=== PATIENT | female | born 1955 | race Caucasian/White ===

== ENCOUNTER 2018-03-12 15:48 | Inpatient (IN) | payer MEDICARE, BC ==
[2018-03-12] MEDS ORDERED: Ondansetron 4 MG/2 ML SDV IV PRN (16:35)
[2018-03-12] MEDS: Dextrose 5%-Lactated Ringers 1,000 ML IV SCH (16:45)
[2018-03-12] MEDS: Pantoprazole 40 MG Vial IV SCH (17:32)
[2018-03-12] MEDS ORDERED: Sodium Chloride 0.9% 10 ML Syringe FLUSH PRN (19:33)
[2018-03-12] MEDS: LORazepam 2 MG/ML SDV IV PRN (20:21)
[2018-03-13] MEDS: LORazepam 2 MG/ML SDV IV PRN ×2 (01:25→09:45)
[2018-03-13] MEDS: Dextrose 5%-Lactated Ringers 1,000 ML IV SCH ×2 (02:31→23:08)
[2018-03-13] MEDS ORDERED: Naloxone 0.4 MG/ML SDV IV PRN (07:16)
[2018-03-13] MEDS ORDERED: HYDROmorphone/Normal Saline 15 MG/30 ML PCA IV PRN (07:16)
[2018-03-13] MEDS ORDERED: Dexamethasone 4 MG/ML SDV ONE (07:59)
[2018-03-13] MEDS ORDERED: Succinylcholine 200 MG/10 ML MDV ONE (07:59)
[2018-03-13] MEDS ORDERED: Neostigmine Methylsulfate 1 MG/ML 5 ML Syringe ONE (07:59)
[2018-03-13] MEDS ORDERED: fentaNYL 250 MCG/5 ML SDV ONE (07:59)
[2018-03-13] MEDS ORDERED: Propofol 200 MG/20 ML SDV ONE (07:59)
[2018-03-13] MEDS ORDERED: Rocuronium 50 MG/5 ML Vial ONE (07:59)
[2018-03-13] MEDS ORDERED: Ondansetron 4 MG/2 ML SDV ONE (07:59)
[2018-03-13] MEDS ORDERED: Glycopyrrolate 0.2 MG/ML 5 ML MDV ONE (07:59)
[2018-03-13] MEDS ORDERED: Celecoxib 200 MG Cap PO ONE (08:00)
[2018-03-13] MEDS ORDERED: Pregabalin 75 MG Cap PO ONE (08:00)
[2018-03-13] MEDS ORDERED: Ketamine 500 MG/5 ML MDV IV SCH (09:30)
[2018-03-13] MEDS ORDERED: cefOXitin 2 GM in Sodium Chloride 0.9% 50 ML IV ONE (09:30)
[2018-03-13] MEDS ORDERED: Lidocaine 2% 100 MG/5 ML Syringe IVPUSH ONE (09:30)
[2018-03-13] MEDS ORDERED: Ropivacaine 31 ML, Dexamethasone 8 MG, EPINEPHrine 0.4 MG, Sodium Chloride 0.9% 46.6 ML NERVRT SCH ×4 (09:30)
[2018-03-13] MEDS ORDERED: Albuterol/Ipratropium 3.0-0.5 MG/3 ML Neb Soln INH ONE (09:30)
[2018-03-13] MEDS ORDERED: Meropenem 500 MG SDV ONE ×2 (10:23→12:17)
[2018-03-13] MEDS ORDERED: Bupivacaine 0.5%/EPINEPHrine 1:200,000 50 ML MDV ONE (12:18)
[2018-03-13] MEDS ORDERED: LORazepam 2 MG/ML SDV IV PRN (13:29)
[2018-03-13] MEDS ORDERED: Hypromellose 0.4% Ophth Soln 15 ML Bottle EYEBOTH PRN (13:37)
[2018-03-13] MEDS ORDERED: Albuterol 8 GM Inhaler INH PRN (13:37)
[2018-03-13] MEDS ORDERED: Albuterol/Ipratropium 3.0-0.5 MG/3 ML Neb Soln INH PRN (14:00)
[2018-03-13] MEDS ORDERED: Metoclopramide 10 MG/2 ML SDV IVPUSH PRN (14:00)
[2018-03-13] MEDS ORDERED: diphenhydrAMINE 50 MG/ML SDV IVPUSH PRN (14:00)
[2018-03-13] MEDS ORDERED: Labetalol 20 MG/4 ML Syringe IVPUSH PRN (14:00)
[2018-03-13] MEDS ORDERED: hydrOXYzine HCl 100 MG/2 ML SDV IM PRN (14:00)
[2018-03-13] MEDS: cefOXitin 2 GM in Sodium Chloride 0.9% 50 ML IV SCH ×2 (15:20→20:31)
--- NOTE | 2018-03-13 15:27 | PN ---
DATE OF SERVICE: 03/13/2018 HISTORY: The patient was admitted earlier this week with a small bowel obstruction at [facility] in [place]. She was noted to have an obstruction of the biliopancreatic limb and she was transferred here for definitive surgical care and overnight she did not have any significant discomfort. She has an NG tube in with minimal output as one would expect given the obstruction not involving the Heather limb. Our plan will be to proceed with a limited laparotomy and revision of the jejunojejunostomy today. We will discontinue the NG tube preoperatively and her morning Lyrica and Celebrex preoperatively and then proceed with the laparotomy later this morning. Her labs are notable for quite a low magnesium, otherwise no major problems are noted. The surgical procedure will be undertaken later this morning. Kody Guerin MD /[id number]
[2018-03-13] MEDS ORDERED: MVI, Adult with Vitamin K 10 ML, Thiamine 200 MG, Chromium/Copper/Mang/Selen/Zn 1 ML in... IV SCH ×4 (16:00)
[2018-03-13] MEDS: Lidocaine 0.4%/D5W 2 GM/500 ML BAG IV SCH (16:00)
[2018-03-13] MEDS: Magnesium Sulfate/Water 2 GM in Premix Bag 1 BAG IV SCH ×2 (16:01→22:10)
[2018-03-13] MEDS: Acetaminophen Soln 650 MG/20.3 ML UD Cup PO SCH ×2 (16:01→23:00)
[2018-03-13] MEDS: Pantoprazole 40 MG Vial IV SCH (16:02)
[2018-03-13] MEDS: Heparin Sodium 5,000 Units/ML Vial SUBCUT SCH (19:43)
[2018-03-13] MEDS: hydrOXYzine HCl 25 MG Tab PO PRN (19:44)
[2018-03-13] MEDS: CITALOPRAM PO SCH ×2 (20:20)
[2018-03-13] MEDS: Pregabalin 75 MG Cap PO SCH (20:20)
[2018-03-13] MEDS: busPIRone 10 MG Tab PO SCH (20:20)
[2018-03-13] MEDS: traZODone 50 MG Tab PO SCH (20:20)
[2018-03-13] MEDS: Ketotifen 0.025% Ophth Soln 5 ML Bottle EYEBOTH SCH (20:21)
[2018-03-14] MEDS: hydrOXYzine HCl 25 MG Tab PO PRN ×2 (02:04→07:30)
[2018-03-14] MEDS ORDERED: Iohexol 647 MG/ML 50 ML SDV PO STA (02:11)
[2018-03-14] MEDS: cefOXitin 2 GM in Sodium Chloride 0.9% 50 ML IV SCH (02:48)
[2018-03-14] MEDS: Acetaminophen Soln 650 MG/20.3 ML UD Cup PO SCH ×4 (03:00→21:04)
[2018-03-14] MEDS: Magnesium Sulfate/Water 2 GM in Premix Bag 1 BAG IV SCH ×4 (03:30→21:05)
[2018-03-14] MEDS: Dextrose 5%-Lactated Ringers 1,000 ML IV SCH ×2 (05:01→11:35)
[2018-03-14] MEDS: Celecoxib 200 MG Cap PO SCH (07:30)
[2018-03-14] MEDS: Levothyroxine 88 MCG Tab PO SCH (07:31)
[2018-03-14] MEDS: Heparin Sodium 5,000 Units/ML Vial SUBCUT SCH ×2 (07:32→20:56)
[2018-03-14] MEDS: busPIRone 10 MG Tab PO SCH ×3 (09:31→20:56)
[2018-03-14] MEDS: CITALOPRAM PO SCH ×4 (09:31→20:56)
[2018-03-14] MEDS: Ketotifen 0.025% Ophth Soln 5 ML Bottle EYEBOTH SCH ×2 (09:31→20:57)
[2018-03-14] MEDS: SCOPOLAMINE PATCH CHECK TOP SCH (09:32)
[2018-03-14] MEDS: Pregabalin 75 MG Cap PO SCH ×2 (09:36→20:56)
[2018-03-14] MEDS: Lidocaine 0.4%/D5W 2 GM/500 ML BAG IV SCH (10:00)
[2018-03-14] MEDS: traMADol 50 MG Tab PO PRN (14:41)
[2018-03-14] MEDS: HYDROmorphone 2 MG Tab PO PRN ×2 (16:20→23:11)
[2018-03-14] MEDS: Pantoprazole 40 MG Delayed-Release Granules 1 Packet PO SCH (16:21)
[2018-03-14] MEDS: MVI, Adult with Vitamin K 10 ML, Thiamine 200 MG, Chromium/Copper/Mang/Selen/Zn 1 ML in... IV SCH ×4 (16:21)
[2018-03-14] MEDS: traZODone 50 MG Tab PO SCH (20:56)
[2018-03-15] MEDS: Acetaminophen Soln 650 MG/20.3 ML UD Cup PO SCH (03:23)
[2018-03-15] MEDS: Magnesium Sulfate/Water 2 GM in Premix Bag 1 BAG IV SCH ×4 (03:25→21:38)
[2018-03-15] MEDS: HYDROmorphone 2 MG Tab PO PRN (03:34)
[2018-03-15] MEDS: Dextrose 5%-Lactated Ringers 1,000 ML IV SCH (05:17)
[2018-03-15] MEDS: Pregabalin 75 MG Cap PO SCH ×2 (08:01→21:38)
[2018-03-15] MEDS: hydrOXYzine HCl 25 MG Tab PO PRN (08:01)
[2018-03-15] MEDS: Ketotifen 0.025% Ophth Soln 5 ML Bottle EYEBOTH SCH ×2 (08:02→21:30)
[2018-03-15] MEDS: Levothyroxine 88 MCG Tab PO SCH (08:03)
[2018-03-15] MEDS: busPIRone 10 MG Tab PO SCH ×3 (08:03→21:30)
[2018-03-15] MEDS: CITALOPRAM PO SCH ×4 (08:04→21:29)
[2018-03-15] MEDS: Heparin Sodium 5,000 Units/ML Vial SUBCUT SCH ×2 (08:05→21:28)
[2018-03-15] MEDS: Celecoxib 200 MG Cap PO SCH (08:05)
--- NOTE | 2018-03-15 08:57 | CR ---
UGI wo KUB HISTORY: eval R -Y GBP FINDINGS: After administration of oral contrast, upright views were obtained. Post operative changes gastric bypass. Surgical drains in place. No evidence for leak. Contrast passes freely into proximal small bowel loops. IMPRESSION: No evidence for leak or obstruction.
[2018-03-15] MEDS ORDERED: Cyanocobalamin (Vitamin B12) 1,000 MCG/ML SDV IM ONE (09:00)
[2018-03-15] MEDS: SCOPOLAMINE PATCH CHECK TOP SCH (09:00)
--- NOTE | 2018-03-15 09:08 | PN ---
DATE OF SERVICE: 03/15/2018 SUBJECTIVE: Eliza reports her pain is controlled. She has been up ambulating. She is postoperative day #2. Vital signs have been stable. She has been afebrile. Oral intake is 1040. Urine output is 1250. She has had 3 bowel movements. REVIEW OF SYSTEMS: Remainder of review of systems negative for any pertinent positives and negatives. OBJECTIVE: GENERAL: Eliza Lewis is a pleasant 62-year-old female. She is alert and orientated. VITAL SIGNS: TPR 96.6, 69, 18, and blood pressure 94/45. HEENT: Negative. NECK: Supple. HEART: Regular rate and rhythm. LUNGS: Clear. ABDOMEN: Dressings dry and intact. She has the Aquacel dressing on. EXTREMITIES: Without peripheral edema. ASSESSMENT: Exploratory laparotomy with lysis of extensive adhesions, revision of the jejunostomy component of the Heather-en-Y gastric bypass surgery, separate small bowel resection, repair of incarcerated incisional hernia and placement of Interceed mesh for partial small bowel obstruction of the JJ, extensive intraabdominal adhesions and incarcerated incisional hernia. Date of surgery, 03/13/2018. PLAN: 1. Percocet 5/325 mg 1 to 2 every 4 hours p.r.n. pain. 2. Discontinue Tylenol and Dilaudid. 3. Dressing off, may shower. 4. Encourage Atarax as prescribed for adjunct in pain management. 5. Good pulmonary toilet. 6. We will evaluate p.r.n. or in a.m. Kaylee Casanova PA-C /[id number]
[2018-03-15] MEDS: traMADol 50 MG Tab PO PRN ×2 (13:15→19:26)
[2018-03-15] MEDS: Acetaminophen/oxyCODONE 325-5 MG Tab PO PRN ×2 (15:30→21:37)
[2018-03-15] MEDS: MVI, Adult with Vitamin K 10 ML, Thiamine 200 MG, Chromium/Copper/Mang/Selen/Zn 1 ML in... IV SCH ×4 (15:39)
[2018-03-15] MEDS: Pantoprazole 40 MG Delayed-Release Granules 1 Packet PO SCH (15:45)
[2018-03-15] MEDS: traZODone 50 MG Tab PO SCH (21:29)
[2018-03-16] MEDS: Dextrose 5%-Lactated Ringers 1,000 ML IV SCH (04:21)
[2018-03-16] MEDS: Acetaminophen/oxyCODONE 325-5 MG Tab PO PRN ×3 (04:30→21:17)
[2018-03-16] MEDS: Magnesium Sulfate/Water 2 GM in Premix Bag 1 BAG IV SCH ×2 (04:31→09:11)
[2018-03-16] MEDS: Heparin Sodium 5,000 Units/ML Vial SUBCUT SCH ×2 (07:22→21:16)
[2018-03-16] MEDS: Celecoxib 200 MG Cap PO SCH (07:22)
[2018-03-16] MEDS: Levothyroxine 88 MCG Tab PO SCH (07:22)
[2018-03-16] MEDS: CITALOPRAM PO SCH ×2 (09:13)
[2018-03-16] MEDS: busPIRone 10 MG Tab PO SCH ×3 (09:13→21:16)
[2018-03-16] MEDS: Ketotifen 0.025% Ophth Soln 5 ML Bottle EYEBOTH SCH ×2 (09:13→21:16)
[2018-03-16] MEDS: Pregabalin 75 MG Cap PO SCH ×2 (09:14→21:21)
--- NOTE | 2018-03-16 10:18 | PN ---
DATE OF SERVICE: 03/16/2018 SUBJECTIVE: Vital signs have been stable. Pain has been controlled. Oral intake 1190. Urine output 2024. She has been up ambulating and having bowel movements. REVIEW OF SYSTEMS: Remainder of review of systems negative for any pertinent positives and negatives. OBJECTIVE: GENERAL: Eliza Lewis is a 62-year-old female. Alert and orientated. VITAL SIGNS: TPR is 97, 67, 18, and blood pressure 116/55. HEENT: Negative. NECK: Supple. HEART: Regular rate and rhythm. LUNGS: Clear. ABDOMEN: Occlusive Aquacel dressing is in place. There is shadowing noted. Abdominal binder has been on. EXTREMITIES: Without peripheral edema. ASSESSMENT: Exploratory laparotomy with lysis of adhesions, revision of jejunostomy component of the Heather-en-Y gastric bypass surgery, separate small bowel resection, repair of incarcerated incisional hernia and placement of Interceed mesh for partial small bowel obstruction of the JJ, extensive intraabdominal adhesions and incarcerated incisional hernia. Date of surgery, 03/13/2018. PLAN: 1. Continue same cares. 2. Good pulmonary toilet. 3. Dietary consult. 4. We will evaluate p.r.n. or in a.m. 5. Plan discharge in a.m. Kaylee Casanova PA-C /[id number]
[2018-03-16] MEDS ORDERED: LORazepam 0.5 MG Tab PO PRN (16:05)
[2018-03-16] MEDS ORDERED: Ondansetron 4 MG Tab.DIS PO PRN (16:07)
[2018-03-16] MEDS: Pantoprazole 40 MG Delayed-Release Granules 1 Packet PO SCH (17:28)
[2018-03-16] MEDS: MVI, Adult with Vitamin K 10 ML, Thiamine 200 MG, Chromium/Copper/Mang/Selen/Zn 1 ML in... IV SCH ×4 (18:07)
[2018-03-16] MEDS: Citalopram 10 MG Tab PO SCH (21:16)
[2018-03-16] MEDS: traZODone 50 MG Tab PO SCH (21:17)
[2018-03-17] MEDS: Acetaminophen/oxyCODONE 325-5 MG Tab PO PRN ×2 (06:01→11:37)
[2018-03-17] MEDS: Heparin Sodium 5,000 Units/ML Vial SUBCUT SCH (07:08)
[2018-03-17] MEDS: Celecoxib 200 MG Cap PO SCH (07:08)
[2018-03-17] MEDS: Levothyroxine 88 MCG Tab PO SCH (07:08)
[2018-03-17] MEDS: Citalopram 10 MG Tab PO SCH (08:47)
[2018-03-17] MEDS: Ketotifen 0.025% Ophth Soln 5 ML Bottle EYEBOTH SCH (08:47)
[2018-03-17] MEDS: busPIRone 10 MG Tab PO SCH (08:47)
[2018-03-17] MEDS: Pregabalin 75 MG Cap PO SCH (08:50)
[2018-03-17] MEDS: traMADol 50 MG Tab PO PRN (08:50)
--- NOTE | 2018-03-17 09:38 | DISCH ---
ADMISSION DIAGNOSES: Partial small bowel obstruction SP Heather-en-Y gastric bypass surgery unspecified; surgical malabsorption; B12 deficiency; depression; fibromyalgia; hyperlipidemia; frequent urinary tract infection; episode of septic shock following placement of an apparently G-tube 2016; poor balance. DISCHARGE DIAGNOSES: Exploratory laparotomy with lysis of adhesion, revision of jejunostomy component of the Heather-en-Y gastric bypass surgery, separate small bowel resection, repair of incarcerated incisional hernia and placement of Interceed mesh for partial small bowel obstruction at the jejunostomy and extension of intraabdominal adhesions, incarcerated incisional hernia. Date of surgery 03/13/2018. HISTORY: Eliza Lewis is a pleasant 62-year-old female who presented to the emergency room at [facility] in [place], [place]. She was transferred to [facility] per ambulance. After preoperative evaluation and discussion of possible risks and possible complications, she wished to proceed with surgical procedure. HOSPITAL COURSE: Eliza had her surgery on 03/13/2018. She had no operative complications. On postoperative day 1, she was started on a step 3 gastric bypass diet and oral pain medication. On postoperative day 2, she was tolerating her diet well. She was switched from Dilaudid to Percocet for better pain control and she was using Atarax in adjunct to pain management. Her activity otherwise was fairly good. Oral intake adequate and she continued on 03/16/2018 to work on her pulmonary status. She did see a dietitian again for review of gastric bypass diet #3. On 03/17/2018, she was able to be discharged to home without any complications. Vital signs were stable. Pain was well managed. Activity was good and she had adequate education. PHYSICAL EXAMINATION: GENERAL: Eliza Lewis is a pleasant 62-year-old female. She is alert and orientated. VITAL SIGNS: Height 5 feet 1 inch. Weight 140 pounds. TPR 98, 183, 18, blood pressure 124/55. HEENT: Negative. NECK: Supple. HEART: Regular rate and rhythm. LUNGS: Clear. ABDOMEN: Vallecitos intact. Abdominal binder is on. EXTREMITIES: Without peripheral edema. DISPOSITION: Discharged home. CONDITION: Stable and improving. FOLLOWUP: Followup appointment with Kaylee Casanova PA-C at [facility], [place], [place] on 03/23/2018 at 1 p.m. MEDICATIONS: Her new prescription; Percocet 5/325 mg one to two every 4 hours p.r.n. pain #40. She is to resume her home medication albuterol inhaler 2 puffs every 4 hours p.r.n. wheezing, calcium citrate 400 mg b.i.d., citalopram 30 mg oral twice daily, Artificial Tears one drop in both eyes four times a day p.r.n., and diclofenac sodium 4 g topical four times a day for pain and inflammation, fluocinolone one applicator twice daily for psoriasis, Flonase 2 sprays in each nostril twice daily, Ketotifen 0.025% ophthalmic solution one drop in each eye twice daily, levothyroxine 88 mcg daily, loratadine 10 mg oral daily, multivitamin [place] three tablets oral daily, omeprazole 20 mg p.o. twice daily, Zofran 8 mg three times a day p.r.n. nausea, Lyrica 75 mg oral twice daily, selenium sulfide one applicator topical as needed, Senna Lax three tablets oral daily, zinc sulfate 220 mg oral daily, Geodon 40 mg oral at bedtime, Buspar 20 mg oral 3 times a day, hydroxyzine 50 mg oral 4 times a day for anxiety, trazodone 50 mg at bedtime. DISCHARGE DIET: Diet after discharge Step-3 gastric bypass diet. Drink 8 to 10 glasses of water a day. ACTIVITY: No lifting greater than 10 pounds for 6 weeks. Other activity, walk at least 6 times daily inside your home. Driving; do not drive on pain medication. Shower/bathing, may shower. Keep site clean and dry. Notify provider if any fever, increased pain, nausea, or vomiting. Wound incision care; wear abdominal binder for 6 weeks and then as tolerated. SPECIAL INSTRUCTIONS: Use incentive spirometer 10 times in a row every hour while awake.
--- NOTE | 2018-03-17 12:56 | PN ---
DATE OF SERVICE: 03/14/2018 The patient been afebrile with stable vital signs. Oral intake was fairly good, around 660 mL. However, upper GI x-ray looks good this morning as well. We will switch her over to exclusively oral pain medicine today. We will go to a step-3 diet and she may be ready for discharge home tomorrow. Kody Guerin MD /[id number]
--- NOTE | 2018-03-22 12:52 | OR ---
DATE OF PROCEDURE: 03/13/2018 PREOPERATIVE DIAGNOSIS: Partial small bowel obstruction. POSTOPERATIVE DIAGNOSES: 1. Partial small bowel obstruction at jejunojejunostomy. 2. 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 3. Extensive intraperitoneal adhesions. 4. Incarcerated incisional hernia. OPERATIVE PROCEDURES: Exploratory laparotomy with lysis of adhesions and; 1. Revision of the jejunojejunostomy component of the Heather-en-Y gastric bypass (00988). 2. Separate small bowel resection (91521). 3. Repair of incarcerated incisional hernia (20923). 4. Placement of Interceed mesh to displace viscera from the pelvic and abdominal baez to limit recurrent adhesion formation (42997). ANESTHESIA: General. INDICATION FOR PROCEDURE: This is a 62-year-old status post Heather-en-Y gastric bypass, presenting in [place] with a picture of a partial small bowel obstruction. The patient was transferred here to [facility] management of that problem. The plan is to proceed with an open laparotomy given the degree of distention of small bowel with lysis of adhesions and/or bowel resection as indicated. Potential risks including bleeding, infection, leaks from the various GI tract closures, possible recurrence of the bowel obstruction over time, as well as the possibility of cardiopulmonary, septic, or hemorrhagic complications leading to were discussed, and the patient wishes to proceed. DETAILS OF PROCEDURE: The patient was taken to the operating room and after general endotracheal anesthesia was induced, bilateral subcostal transversus abdominis plane blocks were placed using the standard solution under continuous ultrasound guidance. Following this, the abdomen was prepped and draped. An upper midline incision was made from the umbilicus to roughly a handsbreadth's toward the xiphoid and carried down through the full- thickness of the abdominal wall. Upon entering the peritoneal cavity, general exploration was undertaken. The patient was noted to have 2 areas of incarcerated hernia in the midline incision during the course of that dissection with the hernia contents being dissected and delivered from the field. These consisting of omentum and preperitoneal fat. On examination of the small bowel, the patient was noted to have some adhesions at the jejunojejunostomy. This created, after lysis of adhesions, a situation where the anastomosis appeared to be edematous and narrowed, likely related to the chronic adhesion placement and recent onset of the acute bowel obstruction. The biliopancreatic limb was especially distended proximal to that anastomosis. The decision was made at this point to proceed with revision of the jejunojejunostomy. On further downstream examination of the small bowel, the patient was noted to have an area of small bowel with quite large lymphangioma present with almost the entire circumference of the bowel at that point with a whitened thickened texture, and this was felt best to be resected as well. At this point, the small bowel was divided at the point where the Heather limb entered the present jejunojejunostomy. This then allowed the orientation of the remainder of that anastomosis, i.e., what had been end of the biliopancreatic limb to the beginning of the common limb to lie in a non-distorted position and appeared to be a satisfactorily opened. The jejunojejunostomy was then further revised with anastomosis of the Heather limb to a point of the small bowel, roughly 20 cm distal to the original anastomosis. This was done with an internal firing of Endo-MISSAEL 60 mm stapler, the common opening was closed transversely with the same stapler, angles of anastomosis were reinforced with some 3-0 Vicryl stitch, and the underlying mesenteric defect approximated with a running 2-0 silk stitch. The separate area of small bowel involving probable lymphangioma was resected proximal and distal, and this was divided with MISSAEL ochoa as well as the underlying mesentery and a side- to-side enteroenterostomy accomplished with internal firing of the Endo-MISSAEL 60 mm stapler followed by a 45-mm staple line and then common opening closed with a transversely-oriented purple line staple. The angles of this anastomosis were reinforced with some 3-0 Vicryl stitch. The extent of resection was limited enough that there was no significant mesenteric defect. At this point, no further problems were noted. The abdomen was irrigated with meropenem- containing saline solution. The patient was felt to be at high risk for development of adhesions between the viscera and the pelvic and abdominal baez as there was no omentum available to cover those areas. Given this, Interceed mesh was placed into the pelvis upward, underneath the incision. Over this then, a fascial closure was accomplished with a #2 Vicryl stitch. This included repair of the 2 sites of herniation in the incision. The subcutaneous tissue was approximated with 2 layers of 3-0 Vicryl stitch and the skin with ochoa. Dressing was applied. The patient was taken to the recovery room in a satisfactory condition. There were no evident complications. Kody Guerin MD /[id number]
== END 2018-03-17 12:10 | disposition home or self-care (01) | DRG 336 ==
LOC: JP.MS 15:48
PROVIDERS: ADMIT Surgery; ATTEND Surgery
PROC: 0DNA0ZZ Release Jejunum, Open Approach (ICD-10-PCS; principal; 2018-03-13)
PROC: 0DBA0ZX Excision of Jejunum, Open Approach, Diagnostic (ICD-10-PCS; 2018-03-13)
PROC: 0DB80ZX Excision of Small Intestine, Open Approach, Diagnostic (ICD-10-PCS; 2018-03-13)
PROC: 0WQF0ZZ Repair Abdominal Wall, Open Approach (ICD-10-PCS; 2018-03-13)
PROC: 3E0T3BZ Introduction of Anesthetic Agent into Peripheral Nerves and Plexi, Percutaneous Approach (ICD-10-PCS; 2018-03-13)
PROC: 3E0M05Z Introduction of Adhesion Barrier into Peritoneal Cavity, Open Approach (ICD-10-PCS; 2018-03-13)
DX: K56.51 Intestinal adhesions [bands], with partial obstruction (principal); K91.2 Postsurgical malabsorption, not elsewhere classified; K43.0 Incisional hernia with obstruction, without gangrene; D18.1 Lymphangioma, any site; E53.8 Deficiency of other specified B group vitamins; F32.9 Major depressive disorder, single episode, unspecified; Z98.84 Bariatric surgery status; Z98.0 Intestinal bypass and anastomosis status; M79.7 Fibromyalgia; E03.9 Hypothyroidism, unspecified; Z87.891 Personal history of nicotine dependence; Z87.440 Personal history of urinary (tract) infections; Z88.1 Allergy status to other antibiotic agents; Z88.8 Allergy status to other drugs, medicaments and biological substances; E78.5 Hyperlipidemia, unspecified
CPT/HCPCS: 36415; 74240; 74240-26; 80053; 82728; 82746; 83735; 83880; 84100; 84425; 84443; 85027; 88304; 88307; A9270-GY; C9113; J0171; J0330; J0694; J1100; J1644; J2001; J2060; J2185; J2405; J2704; J2710; J2795; J3010; J3411; J3420; J3475; J3490; J7030; J7042; J7050; Q9967

== ENCOUNTER 2020-06-12 06:52 | Inpatient (IN) | payer MEDICARE, BC ==
[2020-06-12] MEDS ORDERED: Dextrose 5%-Lactated Ringers 1,000 ML IV SCH (07:30)
[2020-06-12] MEDS ORDERED: Acetaminophen 500 MG Tab PO ONE (07:30)
[2020-06-12] MEDS ORDERED: Albuterol 8 GM Inhaler INH ONE ×2 (08:00→08:35)
[2020-06-12] MEDS ORDERED: Propofol 200 MG/20 ML SDV ONE (08:09)
[2020-06-12] MEDS ORDERED: Rocuronium 50 MG/5 ML Vial ONE (08:09)
[2020-06-12] MEDS ORDERED: Neostigmine Methylsulfate 1 MG/ML 5 ML Syringe ONE (08:09)
[2020-06-12] MEDS ORDERED: fentaNYL 250 MCG/5 ML SDV ONE (08:09)
[2020-06-12] MEDS ORDERED: Glycopyrrolate 0.2 MG/ML 5 ML MDV ONE (08:09)
[2020-06-12] MEDS ORDERED: Ondansetron 4 MG/2 ML SDV ONE (08:09)
[2020-06-12] MEDS ORDERED: Dexamethasone 4 MG/ML SDV ONE (08:09)
[2020-06-12] MEDS ORDERED: ceFAZolin 2 GM in Premix Bag 1 BAG IV ONE (08:30)
[2020-06-12] MEDS ORDERED: Ketamine 50 MG in Sodium Chloride 0.9% 49.5 ML IV SCH (08:45)
[2020-06-12] MEDS ORDERED: Ketamine 500 MG/5 ML MDV IV SCH (08:45)
[2020-06-12] MEDS ORDERED: Meropenem 500 MG SDV ONE (09:01)
[2020-06-12] MEDS ORDERED: Bupivacaine 0.5% 50 ML MDV ONE (10:40)
[2020-06-12] MEDS ORDERED: Lidocaine 1% with EPINEPHrine 1:100,000 50 ML MDV ONE (10:40)
[2020-06-12] MEDS ORDERED: hydrOXYzine HCL 100 MG/2 ML SDV IM ONE (11:02)
[2020-06-12] MEDS ORDERED: Naloxone 0.4 MG/ML SDV IVPUSH PRN (11:24)
[2020-06-12] MEDS ORDERED: diphenhydrAMINE 25 MG Cap PO PRN (11:24)
[2020-06-12] MEDS ORDERED: HYDROmorphone/Normal Saline 15 MG/30 ML PCA IV PRN (11:24)
[2020-06-12] MEDS ORDERED: Ondansetron 4 MG/2 ML SDV IVPUSH PRN ×2 (11:24→12:47)
[2020-06-12] MEDS ORDERED: diphenhydrAMINE 50 MG/ML SDV IVPUSH PRN (11:24)
[2020-06-12] MEDS ORDERED: Naloxone 0.4 MG/ML SDV IV PRN (12:00)
[2020-06-12] MEDS ORDERED: hydrOXYzine HCL 100 MG/2 ML SDV IM PRN (12:45)
[2020-06-12] MEDS ORDERED: Cyclobenzaprine 10 MG Tab PO PRN (12:47)
[2020-06-12] MEDS ORDERED: Albuterol 8 GM Inhaler INH PRN (12:48)
[2020-06-12] MEDS ORDERED: Hypromellose 0.3% Ophth Soln 15 ML Bottle EYEBOTH PRN (12:54)
[2020-06-12] MEDS: Acetaminophen 325 MG Tab PO SCH (17:07)
[2020-06-12] MEDS: Pantoprazole 40 MG Tab.CR PO SCH (17:07)
[2020-06-12] MEDS: ceFAZolin 2 GM in Premix Bag 1 BAG IV SCH (17:07)
[2020-06-12] MEDS: Dextrose 5%-Lactated Ringers 1,000 ML IV SCH (20:22)
[2020-06-12] MEDS: Ziprasidone HCl 20 MG Cap PO SCH (20:23)
[2020-06-12] MEDS: Ketotifen 0.025% Ophth Soln 5 ML Bottle EYEBOTH SCH (20:23)
[2020-06-12] MEDS: traZODone 50 MG Tab PO SCH (20:24)
[2020-06-12] MEDS: hydrOXYzine HCl 25 MG Tab PO PRN (20:24)
[2020-06-13] MEDS: Acetaminophen 325 MG Tab PO SCH ×5 (00:33→23:37)
[2020-06-13] MEDS: ceFAZolin 2 GM in Premix Bag 1 BAG IV SCH ×2 (01:28→10:16)
[2020-06-13] MEDS: Dextrose 5%-Lactated Ringers 1,000 ML IV SCH (03:46)
[2020-06-13] MEDS ORDERED: Ondansetron 4 MG Tab.DIS PO PRN (07:36)
[2020-06-13] MEDS ORDERED: Dextrose 5%-Lactated Ringers 1,000 ML IV SCH (07:45)
[2020-06-13] MEDS: busPIRone 5 MG Tab PO SCH (08:34)
[2020-06-13] MEDS: Levothyroxine 88 MCG Tab PO SCH (08:34)
[2020-06-13] MEDS: CITALOPRAM PO SCH ×2 (08:35)
[2020-06-13] MEDS: Pantoprazole 40 MG Tab.CR PO SCH ×2 (08:35→16:57)
[2020-06-13] MEDS: Loratadine 10 MG Tab PO SCH (08:36)
[2020-06-13] MEDS: Fluticasone Propionate Nasal Spray 16 GM Bottle NASBOTH SCH (08:36)
[2020-06-13] MEDS: Ketotifen 0.025% Ophth Soln 5 ML Bottle EYEBOTH SCH ×2 (08:38→21:01)
--- NOTE | 2020-06-13 08:56 | PN ---
DATE OF SERVICE: 06/13/2020 SUBJECTIVE: Eliza is postoperative day #1. 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 She has no questions or concerns. Pain is controlled. She has been up ambulating, voiding. Oral intake 1400. Urine output 600. She has been afebrile. REVIEW OF SYSTEMS: Remainder of review of systems negative for any pertinent positives and negatives. OBJECTIVE: GENERAL: Eliza is a pleasant 64-year-old female. She is very sleepy, has a hard time staying awake. VITAL SIGNS: TPR is 97.4, 64, 10, blood pressure 106/50. HEENT: Negative. NECK: Supple. HEART: Regular rate and rhythm. LUNGS: Clear. ABDOMEN: Dressings dry and intact. Abdominal binder is on. EXTREMITIES: Without peripheral edema. ASSESSMENT: Exploratory laparotomy with: 1. Repair of incarcerated incisional hernia with mesh. 2. Placement of Interceed mesh. POSTOPERATIVE DIAGNOSES: 1. Incarcerated incisional hernia. 2. Extensive intraabdominal adhesions. 3. Date of surgery: 06/12/2020. Surgeon: Kody Guerin MD. PLAN: 1. Decrease IV to 100 mL per hour. 2. Step 3 gastric bypass diet. 3. Discontinue IN[employer]CTOR [employer] SPANISH. 4. Oxycodone 5 mg q.4 hours p.r.n. pain. 5. Zofran ODT 4 mg every 4 hours p.r.n. nausea, vomiting. 6. Decrease IV to 100 mL per hour. 7. May shower. 8. Discontinue IN[employer]CTOR OF SPANISH and continuous pulse ox. 9. We will evaluate p.r.n. or in a.m. Kaylee Casanova PA-C /[id number]
[2020-06-13] MEDS: oxyCODONE 5 MG Tab PO PRN ×4 (09:39→23:37)
[2020-06-13] MEDS: hydrOXYzine HCl 25 MG Tab PO PRN ×2 (11:52→19:23)
[2020-06-13] MEDS ORDERED: diphenhydrAMINE 25 MG Cap PO PRN (12:26)
[2020-06-13] MEDS: Ziprasidone HCl 20 MG Cap PO SCH (21:01)
[2020-06-13] MEDS: traZODone 50 MG Tab PO SCH (21:01)
[2020-06-14] MEDS: oxyCODONE 5 MG Tab PO PRN ×5 (03:33→21:27)
[2020-06-14] MEDS: Acetaminophen 325 MG Tab PO SCH ×3 (06:47→17:36)
[2020-06-14] MEDS: Pantoprazole 40 MG Tab.CR PO SCH ×2 (07:21→16:15)
[2020-06-14] MEDS: Levothyroxine 88 MCG Tab PO SCH (07:21)
--- NOTE | 2020-06-14 08:32 | PN ---
DATE OF SERVICE: 06/14/2020 SUBJECTIVE: Eliza is postop day 1. She has been up ambulating. Pain has been controlled with oral pain medication. She has not had a bowel movement yet. Afebrile. Oral intake 1200. Urine output is 2300. REVIEW OF SYSTEMS: Remainder of review of systems negative for any pertinent positives and negatives. OBJECTIVE: GENERAL: Eliza Lewis is a pleasant 64-year-old female. VITAL SIGNS: TPR is 98.3, 70, 16, blood pressure 113/46. HEENT: Negative. NECK: Supple. HEART: Regular rate and rhythm. LUNGS: Clear. ABDOMEN: Dressings dry and intact. Abdominal binder is on. EXTREMITIES: Without peripheral edema. ASSESSMENT: Exploratory laparotomy with: 1. Repair of incarcerated incisional hernia with mesh. 2. Placement of Interceed mesh. POSTOPERATIVE DIAGNOSES: 1. Incarcerated incisional hernia. 2. Excision of intra-abdominal adhesions. 3. Date of surgery: 06/12/2020. Surgeon: Kody Guerin MD. PLAN: Colace 100 mg p.o. b.i.d., Dulcolax 10 mg p.o. b.i.d. Continue ambulation and use of incentive spirometer. Communication order written for no straw as the patient is status post Heather-en-Y gastric bypass surgery. Kaylee Casanova PA-C /[id number]
[2020-06-14] MEDS: busPIRone 5 MG Tab PO SCH (08:45)
[2020-06-14] MEDS: CITALOPRAM PO SCH ×2 (08:45)
[2020-06-14] MEDS: Docusate Sodium 100 MG Cap PO SCH ×2 (08:45→21:27)
[2020-06-14] MEDS: Loratadine 10 MG Tab PO SCH (08:46)
[2020-06-14] MEDS: Fluticasone Propionate Nasal Spray 16 GM Bottle NASBOTH SCH (08:46)
[2020-06-14] MEDS: Bisacodyl 5 MG Tab PO SCH ×2 (08:46→21:27)
[2020-06-14] MEDS: Ketotifen 0.025% Ophth Soln 5 ML Bottle EYEBOTH SCH ×2 (08:47→21:26)
[2020-06-14] MEDS: traZODone 50 MG Tab PO SCH (21:27)
[2020-06-14] MEDS: Ziprasidone HCl 20 MG Cap PO SCH (21:27)
[2020-06-15] MEDS: Acetaminophen 325 MG Tab PO SCH ×3 (02:04→12:25)
[2020-06-15] MEDS: oxyCODONE 5 MG Tab PO PRN ×3 (03:56→12:25)
[2020-06-15] MEDS: Levothyroxine 88 MCG Tab PO SCH (08:02)
[2020-06-15] MEDS: Pantoprazole 40 MG Tab.CR PO SCH (08:02)
[2020-06-15] MEDS: busPIRone 5 MG Tab PO SCH (08:02)
[2020-06-15] MEDS: Ketotifen 0.025% Ophth Soln 5 ML Bottle EYEBOTH SCH (08:03)
[2020-06-15] MEDS: Bisacodyl 5 MG Tab PO SCH (08:03)
[2020-06-15] MEDS: Fluticasone Propionate Nasal Spray 16 GM Bottle NASBOTH SCH (08:03)
[2020-06-15] MEDS: Docusate Sodium 100 MG Cap PO SCH (08:03)
[2020-06-15] MEDS: Loratadine 10 MG Tab PO SCH (08:03)
[2020-06-15] MEDS: CITALOPRAM PO SCH ×2 (08:04)
--- NOTE | 2020-06-15 18:01 | DISCH ---
ADMISSION DIAGNOSES: 1. Incisional hernia. 2. Status post Heather-en-Y gastric bypass surgery. 3. Unspecified surgical malabsorption. 4. B12 deficiency. 5. Asthma. 6. Fibromyalgia. 7. Sleep apnea. DISCHARGE DIAGNOSES: Exploratory laparotomy with: 1. Repair of incarcerated incisional hernia with mesh. 2. Placement of Interceed mesh. POSTOPERATIVE DIAGNOSES: 1. Incarcerated incisional hernia. 2. Excision of intraabdominal adhesions. DATE OF SURGERY: 06/12/2020. SURGEON: Kody Guerin MD. HISTORY: Eliza Lewis is a pleasant 64-year-old female with recurrent incarcerated incisional hernia. After preoperative evaluation and discussion of possible risks and possible complications, she wished to proceed with surgical procedure. HOSPITAL COURSE: Eliza had her surgery on 06/12/2020. She had no operative complications. On postoperative day 1, she was changed to oral pain medication. Her IV was decreased, and she was started on step-3 gastric bypass diet. On postoperative day 2, she was started on bowel stimulation, vital signs remained stable, activity good, pain well managed, and she was able to be discharged to home on 06/15/2020 with no complications. PHYSICAL EXAMINATION: GENERAL: Eliza Lewis is a pleasant 64-year-old female. VITAL SIGNS: Height is 5 feet 1.75 inches and weight is 134 pounds. TPR 99.1, 71, 18; blood pressure 112/57. HEENT: Negative. NECK: Supple. HEART: Regular rate and rhythm. LUNGS: Clear. ABDOMEN: Aquacel dressings on, dry and intact. EXTREMITIES: Without peripheral edema. DISPOSITION: Discharged to home. CONDITION: Stable and improving. FOLLOWUP APPOINTMENTS: With Kaylee Casanova PA-C, at [facility] on 06/22/2020 at 9:30 a.m. HOME MEDICATIONS: 1. Colace 100 mg p.o. b.i.d., #100. 2. Dulcolax 10 mg oral twice daily until bowel movement. 3. Senna-S 2 tablets daily. 4. Oxycodone 5 mg every 4 hours p.r.n. pain, #42. To resume home medications: 1. Tylenol 650 mg q.6 hours. 2. ProAir inhaler 2 puffs every 6 hours p.r.n. shortness of breath. 3. Calcium citrate b.i.d. 4. Citalopram 30 mg twice daily. 5. Copper 2 mg oral 3 times a day. 6. Cranberry 500 mg oral daily. 7. Vitamin B12 1000 mcg sublingual daily. 8. Artificial Tears 1 drop in each eye 3 times a day. 9. Dextran 70 hypromellose 1 drop in each eye 4 times a day. 10.Diclofenac sodium 4 g topical up to 4 times a day, apply to affected area for pain and inflammation. 11.Nasonide nasal spray 2 sprays twice a day. 12.Fluocinolone topical twice daily p.r.n. psoriasis. 13.Lidex 0.05% topical solution 1 applicator as directed. 14.Flonase 2 sprays in each nostril twice daily. 15.Ketotifen 0.025% ophthalmic solution 1 drop in each eye twice daily. 16.Synthroid 88 mcg oral daily. 17.Loratadine 10 mg oral daily. 18.[place] vitamins 3 tablets daily. 19.Bactroban 1 applicator twice daily. 20.Omeprazole 20 mg twice daily. 21.Zofran 4 mg oral every 12 hours p.r.n. nausea. 22.Vitamin B2 100 mg oral daily. 23.Selenium sulfide 1 applicator topical as directed to scalp. 24.Zinc 220 mg oral daily. 25.BuSpar 7.5 mg oral daily. 26.Hydroxyzine 50 mg oral 4 times a day p.r.n. anxiety. 27.Trazodone 50 mg oral at bedtime. 28.Geodon 40 mg oral at bedtime. DIET: Step-3 gastric bypass diet. Drink 8 to 10 glasses of water a day. ACTIVITY: No lifting over 10 pounds for 6 weeks. OTHER ACTIVITY: Walk 6 times daily inside your home. DRIVING: Do not drive for 1 week. SHOWER/BATHING: May shower. DISCHARGE INSTRUCTIONS: Notify provider if fever, increased pain, nausea, or vomiting. Keep site clean and dry. Wear abdominal binder for 6 weeks. Take off Aquacel dressing in 3 days on 06/18/2020. Use incentive spirometer 10 times every hour while awake.
--- NOTE | 2020-06-17 11:33 | OR ---
DATE OF PROCEDURE: 06/12/2020 SURGEON: Kody Guerin MD PREOPERATIVE DIAGNOSIS: Incisional hernia. POSTOPERATIVE DIAGNOSES: 1. Incarcerated incisional hernia. 2. Extensive intraabdominal adhesions. OPERATIVE PROCEDURES: Exploratory laparotomy with: 1. Repair of incarcerated incisional hernia with mesh (65210, 33142). 2. Placement of Interceed mesh to displace pelvic and abdominal wall from underlying viscera to limit recurrent adhesion formation (56690). ANESTHESIA: General. INDICATION FOR PROCEDURE: A 64-year-old female presenting with increasingly symptomatic incisional hernia located in the supraumbilical area. Plan is to proceed with an open repair of this with mesh. Potential risks including bleeding, infection, injury to underlying viscera, problems with mesh becoming infected or hernia recurring were all reviewed, and the patient wishes to proceed. DETAILS OF PROCEDURE: The patient was taken to the operating room and placed in a supine position. After general endotracheal anesthesia was induced, a Bajwa catheter was inserted, and the abdomen prepped and draped. The previous midline incision from the umbilicus roughly a handsbreadth toward the xiphoid was then made and carried down through the full- thickness of the skin and subcutaneous tissue and the hernia sac was then encountered. This was then dissected circumferentially from the subcutaneous tissue down to the level of the fascia. The hernia was then opened. It was noted to contain some incarcerated transverse colon and appendix epiploica. These were dissected free from the sac and returned back to the peritoneal cavity. The hernia sac was then excised. The area was then freed up of some additional adhesions between the small bowel, omentum, and abdominal wall around the area of herniation. Once this was cleared sufficiently to allow placement of the mesh, the area was mapped out and a Ventrio ST hernia patch measuring 13.8 x 17.8 cm was selected at 5 cm intervals around its circumference. 2-0 Vicryl sutures were placed on the polypropylene side of the mesh. The mesh was soaked in antibiotic-containing saline solution. placed in the abdominal wall skin for the remaining suture to be pulled up in order to fix the mesh well away from the fascial edges. The superior half of the sutures were then initially pulled up and underlying this Interceed mesh was placed extending underneath the incision and from there down toward the pelvis to limit recurrent adhesion formation between those surfaces and the underlying viscera. The remaining sutures were then pulled through, thus fixing the mesh in place. Titanium tacking screws were then placed to underlying shelf circumferentially as well to help fix the mesh further in place and the midline fascia was then approximated with #2 Vicryl stitch, subcutaneous tissue with 2 layers of 3-0 and 4-0 Vicryl stitch, and the skin with ochoa. Prior to closure, bilateral transversus abdominis plane blocks had been placed and the incision was also anesthetized with some 0.5% Marcaine mixed with lidocaine. The patient was taken to the recovery room in satisfactory condition. There were no evident complications. Kody Guerin MD /[id number]
== END 2020-06-15 13:56 | disposition home or self-care (01) | DRG 354 ==
LOC: JP.SDSSCHI 06:52 → JP.SDS 06:52 → EDSTATUS 09:15 → JP.MS 11:10
PROVIDERS: ADMIT Surgery; ATTEND Surgery
PROC: 0WUF0JZ Supplement Abdominal Wall with Synthetic Substitute, Open Approach (ICD-10-PCS; principal; 2020-06-12)
PROC: 3E0M05Z Introduction of Adhesion Barrier into Peritoneal Cavity, Open Approach (ICD-10-PCS; 2020-06-12)
DX: K43.0 Incisional hernia with obstruction, without gangrene (principal); K91.2 Postsurgical malabsorption, not elsewhere classified; K66.0 Peritoneal adhesions (postprocedural) (postinfection); J45.909 Unspecified asthma, uncomplicated; G47.30 Sleep apnea, unspecified; M79.7 Fibromyalgia; F32.9 Major depressive disorder, single episode, unspecified; K21.9 Gastro-esophageal reflux disease without esophagitis; F41.9 Anxiety disorder, unspecified; Z98.84 Bariatric surgery status; Z88.6 Allergy status to analgesic agent; Z79.890 Hormone replacement therapy; Z88.7 Allergy status to serum and vaccine
CPT/HCPCS: 36415; 82728; 82746; 84132; 84443; 88302; 94640; 94762; A9270-GY; C1713; C1781; J0171; J0690; J1100; J1170; J2020; J2185; J2405; J2704; J2710; J2795; J3010; J3410; J3490; J7050; J7121

== ENCOUNTER → 2022-07-29 | Day surgery (SDC) | payer MEDICARE, BC ==
[~2022-07-29] MED LIST: Cyanocobalamin (Vitamin B12) 1,000 MCG/ML SDV IM ONE; Glycopyrrolate 0.2 MG/ML 2 ML SDV IVPUSH ONE; Lactated Ringers 1,000 ML IV SCH; MVI, Adult with Vitamin K 10 ML, Thiamine 200 MG, Zinc/Copper/Manganese/Selenium 1 ML i... IV ONE; Midazolam 1 MG/ML 2 ML SDV ONE; Propofol 200 MG/20 ML SDV ONE
== END ==
LOC: JP.SDS 05:45
PROVIDERS: ATTEND Surgery
DX: K21.9 Gastro-esophageal reflux disease without esophagitis (principal); G47.33 Obstructive sleep apnea (adult) (pediatric); J45.909 Unspecified asthma, uncomplicated; F41.9 Anxiety disorder, unspecified; F32.A Depression, unspecified; Z88.1 Allergy status to other antibiotic agents; Z88.3 Allergy status to other anti-infective agents; Z88.8 Allergy status to other drugs, medicaments and biological substances; Z88.6 Allergy status to analgesic agent; Z79.899 Other long term (current) drug therapy
CPT/HCPCS: 43239; J2250; J2704; J3411; J3420; J7120

== ENCOUNTER 2022-08-01 10:38 | Inpatient (IN) | payer MEDICARE, BC ==
[~2022-08-01 10:38] MED LIST changes: +Bupivacaine 0.5% 50 ML MDV ONE; -Cyanocobalamin (Vitamin B12) 1,000 MCG/ML SDV IM ONE; +Dexamethasone 4 MG/ML SDV ONE; -Glycopyrrolate 0.2 MG/ML 2 ML SDV IVPUSH ONE; +Glycopyrrolate 0.2 MG/ML 5 ML MDV ONE; -Lactated Ringers 1,000 ML IV SCH; +Lidocaine 1% with EPINEPHrine 1:100,000 50 ML MDV ONE; -MVI, Adult with Vitamin K 10 ML, Thiamine 200 MG, Zinc/Copper/Manganese/Selenium 1 ML i... IV ONE; +Meropenem 500 MG SDV ONE; -Midazolam 1 MG/ML 2 ML SDV ONE; +Neostigmine Methylsulfate 1 MG/ML 5 ML Syringe ONE; +Ondansetron 4 MG/2 ML SDV ONE; +Rocuronium 50 MG/5 ML Vial ONE; +Succinylcholine 200 MG/10 ML MDV ONE; +fentaNYL 250 MCG/5 ML SDV ONE
[2022-08-01] MEDS ORDERED: Lidocaine 1% 2 ML ONE (11:09)
[2022-08-01] MEDS ORDERED: Scopolamine 1.5 MG Transdermal Patch TOP SCH (11:10)
[2022-08-01] MEDS ORDERED: Dextrose 5%-Lactated Ringers 1,000 ML IV SCH (11:10)
[2022-08-01] MEDS ORDERED: Acetaminophen 500 MG Tab PO ONE (11:10)
[2022-08-01] MEDS ORDERED: Celecoxib 200 MG Cap PO ONE (11:10)
[2022-08-01] MEDS ORDERED: cefOXitin 2 GM in Sodium Chloride 0.9% 50 ML IV ONE (11:30)
[2022-08-01 11:48] LABS: ESTIMATED GFR 62 mL/min (>60)
[2022-08-01] MEDS ORDERED: Ketamine 14 MG in Sodium Chloride 0.9% 19.86 ML IV SCH (12:00)
[2022-08-01] MEDS ORDERED: Ropivacaine 30 ML, dexAMETHasone 8 MG, EPINEPHrine 0.4 MG, Sodium Chloride 0.9% 47.6 ML NERVRT SCH ×4 (12:00)
[2022-08-01] MEDS ORDERED: Ketamine 500 MG/5 ML MDV IV SCH (12:00)
[2022-08-01] MEDS ORDERED: diphenhydrAMINE 50 MG/ML SDV IVPUSH PRN ×2 (12:18→17:00)
[2022-08-01] MEDS ORDERED: diphenhydrAMINE 25 MG Cap PO PRN (12:18)
[2022-08-01] MEDS ORDERED: Naloxone 0.4 MG/ML SDV IVPUSH PRN (12:18)
[2022-08-01] MEDS ORDERED: Ondansetron 4 MG/2 ML SDV IVPUSH PRN ×2 (12:18→17:00)
[2022-08-01] MEDS: HYDROmorphone/Normal Saline 6 MG/30 ML PCA Vial IV PRN (12:32)
[2022-08-01] MEDS ORDERED: Rocuronium 50 MG/5 ML Vial ONE (13:30)
[2022-08-01] MEDS ORDERED: fentaNYL 250 MCG/5 ML SDV ONE (13:31)
[2022-08-01] MEDS ORDERED: Meropenem 500 MG SDV ONE (13:46)
[2022-08-01] MEDS ORDERED: Lactated Ringers 1,000 ML ONE (13:46)
[2022-08-01] MEDS ORDERED: Sodium Chloride 0.9% 10 ML ONE (13:53)
[2022-08-01] MEDS ORDERED: Linezolid 600 MG/300 ML Premix Bag IRR ONE (14:30)
[2022-08-01] MEDS ORDERED: Cyclobenzaprine 10 MG Tab PO PRN (16:16)
[2022-08-01] MEDS ORDERED: Oxymetazoline 0.05% Nasal Spray 30 ML Bottle NASBOTH PRN (16:24)
[2022-08-01] MEDS ORDERED: Acetaminophen 500 MG Tab PO PRN (17:00)
[2022-08-01] MEDS ORDERED: Naloxone 0.4 MG/ML SDV IV PRN (17:00)
[2022-08-01] MEDS ORDERED: hydrOXYzine HCL 100 MG/2 ML SDV IM PRN (17:00)
[2022-08-01] MEDS ORDERED: Metoclopramide 10 MG/2 ML SDV IVPUSH PRN (17:00)
[2022-08-01] MEDS ORDERED: Labetalol 20 MG/4 ML Syringe IVPUSH PRN (17:00)
[2022-08-01] MEDS ORDERED: Albuterol/Ipratropium 3.0-0.5 MG/3 ML Neb Soln INH PRN (17:00)
[2022-08-01] MEDS: Pantoprazole 40 MG Vial IVPUSH SCH (17:45)
[2022-08-01] MEDS: MVI, Adult with Vitamin K 10 ML, Thiamine 200 MG, Zinc/Copper/Manganese/Selenium 1 ML i... IV SCH ×4 (17:45)
[2022-08-01] MEDS ORDERED: Lactated Ringers 500 ML IV ONE (20:30)
[2022-08-01] MEDS ORDERED: NASALIDE NASBOTH SCH (21:00)
[2022-08-01] MEDS: Albuterol/Ipratropium 3.0-0.5 MG/3 ML Neb Soln INH SCH (21:15)
[2022-08-01] MEDS: cefOXitin 2 GM in Sodium Chloride 0.9% 50 ML IV SCH (21:16)
[2022-08-01] MEDS: Hypromellose 0.3% Ophth Soln 15 ML Bottle EYEBOTH SCH (21:17)
[2022-08-01] MEDS: Fluticasone NASAL Spray 16 GM Bottle NASBOTH SCH (21:17)
[2022-08-01] MEDS: Ketotifen 0.025% Ophth Soln 5 ML Bottle EYEBOTH SCH (21:18)
[2022-08-01] MEDS: Citalopram 10 MG Tab PO SCH (21:19)
[2022-08-01] MEDS: Ziprasidone HCl 20 MG Cap PO SCH (21:20)
[2022-08-01] MEDS: traZODone 50 MG Tab PO SCH (21:23)
[2022-08-02] MEDS: Acetaminophen 500 MG Tab PO SCH ×4 (01:50→22:00)
[2022-08-02] MEDS: cefOXitin 2 GM in Sodium Chloride 0.9% 50 ML IV SCH ×4 (01:51→19:59)
[2022-08-02] MEDS ORDERED: Iopamidol 612 MG/ML 50 ML SDV IV PRN (03:31)
[2022-08-02 05:12] LABS: ESTIMATED GFR 45 mL/min (>60)
[2022-08-02] MEDS: Dextrose 5%-Lactated Ringers 1,000 ML IV SCH ×2 (06:48→13:45)
[2022-08-02] MEDS: Albuterol/Ipratropium 3.0-0.5 MG/3 ML Neb Soln INH SCH ×4 (07:10→21:52)
[2022-08-02] MEDS: Celecoxib 200 MG Cap PO SCH ×2 (08:29→20:02)
[2022-08-02] MEDS: Citalopram 10 MG Tab PO SCH ×2 (08:29→20:02)
[2022-08-02] MEDS: Loratadine 10 MG Tab PO SCH (08:29)
[2022-08-02] MEDS: Hypromellose 0.3% Ophth Soln 15 ML Bottle EYEBOTH SCH ×3 (08:30→20:03)
[2022-08-02] MEDS: Ketotifen 0.025% Ophth Soln 5 ML Bottle EYEBOTH SCH ×2 (08:30→20:03)
[2022-08-02] MEDS: Fluticasone NASAL Spray 16 GM Bottle NASBOTH SCH ×2 (08:30→20:00)
[2022-08-02] MEDS: busPIRone 5 MG Tab PO SCH (08:34)
[2022-08-02] MEDS: SCOPOLAMINE PATCH CHECK TOP SCH (10:51)
[2022-08-02] MEDS: Magnesium Sulfate/Water 2 GM in Premix Bag 1 BAG IV SCH ×3 (10:58→21:52)
[2022-08-02] MEDS ORDERED: Dextrose 5%-Lactated Ringers 1,000 ML IV SCH (16:00)
[2022-08-02] MEDS: Pantoprazole 40 MG Vial IVPUSH SCH (16:45)
[2022-08-02] MEDS: MVI, Adult with Vitamin K 10 ML, Thiamine 200 MG, Zinc/Copper/Manganese/Selenium 1 ML i... IV SCH ×4 (18:20)
[2022-08-02] MEDS: Ziprasidone HCl 20 MG Cap PO SCH (20:03)
[2022-08-02] MEDS: traZODone 50 MG Tab PO SCH (21:52)
[2022-08-03] MEDS: HYDROmorphone/Normal Saline 6 MG/30 ML PCA Vial IV PRN (01:39)
[2022-08-03] MEDS: cefOXitin 2 GM in Sodium Chloride 0.9% 50 ML IV SCH ×3 (02:11→13:22)
[2022-08-03] MEDS: Magnesium Sulfate/Water 2 GM in Premix Bag 1 BAG IV SCH ×5 (04:37→22:00)
[2022-08-03 05:11] LABS: ESTIMATED GFR 55 mL/min (>60)
[2022-08-03] MEDS: Acetaminophen 500 MG Tab PO SCH ×3 (06:32→22:00)
[2022-08-03] MEDS: Albuterol/Ipratropium 3.0-0.5 MG/3 ML Neb Soln INH SCH ×4 (06:57→21:00)
[2022-08-03] MEDS ORDERED: Cyanocobalamin (Vitamin B12) 1,000 MCG/ML SDV IM ONE (09:00)
[2022-08-03] MEDS: Loratadine 10 MG Tab PO SCH (09:33)
[2022-08-03] MEDS: Celecoxib 200 MG Cap PO SCH ×2 (09:33→20:43)
[2022-08-03] MEDS: busPIRone 5 MG Tab PO SCH (09:33)
[2022-08-03] MEDS: Citalopram 10 MG Tab PO SCH ×2 (09:33→20:43)
[2022-08-03] MEDS: Hypromellose 0.3% Ophth Soln 15 ML Bottle EYEBOTH SCH ×3 (09:34→20:41)
[2022-08-03] MEDS: Fluticasone NASAL Spray 16 GM Bottle NASBOTH SCH ×2 (09:34→20:42)
[2022-08-03] MEDS: Ketotifen 0.025% Ophth Soln 5 ML Bottle EYEBOTH SCH ×2 (09:34→20:42)
[2022-08-03] MEDS: SCOPOLAMINE PATCH CHECK TOP SCH (09:39)
[2022-08-03] MEDS ORDERED: Furosemide 20 MG/2 ML VIAL IVPUSH ONE (10:00)
[2022-08-03] MEDS: Pantoprazole 40 MG Tab.CR PO SCH (16:03)
[2022-08-03] MEDS: Dextrose 5%-Lactated Ringers 1,000 ML IV SCH (19:00)
[2022-08-03] MEDS: Ziprasidone HCl 20 MG Cap PO SCH (20:43)
[2022-08-03] MEDS: traZODone 50 MG Tab PO SCH (20:44)
[2022-08-04] MEDS: HYDROmorphone/Normal Saline 6 MG/30 ML PCA Vial IV PRN (02:40)
[2022-08-04 04:45] LABS: ESTIMATED GFR 62 mL/min (>60)
[2022-08-04] MEDS: Magnesium Sulfate/Water 2 GM in Premix Bag 1 BAG IV SCH ×4 (04:45→21:42)
[2022-08-04] MEDS: Acetaminophen 500 MG Tab PO SCH ×3 (06:24→21:40)
[2022-08-04] MEDS: Albuterol/Ipratropium 3.0-0.5 MG/3 ML Neb Soln INH SCH ×4 (07:25→21:41)
[2022-08-04] MEDS: Pantoprazole 40 MG Tab.CR PO SCH (07:39)
[2022-08-04] MEDS: Dextrose 5%-Lactated Ringers 1,000 ML IV SCH (07:48)
[2022-08-04] MEDS: busPIRone 5 MG Tab PO SCH (08:22)
[2022-08-04] MEDS: Celecoxib 200 MG Cap PO SCH ×2 (08:22→21:38)
[2022-08-04] MEDS: Citalopram 10 MG Tab PO SCH ×2 (08:22→21:39)
[2022-08-04] MEDS: Fluticasone NASAL Spray 16 GM Bottle NASBOTH SCH ×2 (08:23→21:39)
[2022-08-04] MEDS: Ketotifen 0.025% Ophth Soln 5 ML Bottle EYEBOTH SCH ×3 (08:23→21:58)
[2022-08-04] MEDS: Hypromellose 0.3% Ophth Soln 15 ML Bottle EYEBOTH SCH ×3 (08:23→21:40)
[2022-08-04] MEDS: Loratadine 10 MG Tab PO SCH (08:23)
[2022-08-04] MEDS: Albumin Human 25 GM in Premix Bag 1 BAG IV SCH (11:36)
[2022-08-04] MEDS: traZODone 50 MG Tab PO SCH (21:38)
[2022-08-04] MEDS: Ziprasidone HCl 20 MG Cap PO SCH (21:39)
[2022-08-05 05:08] LABS: ESTIMATED GFR 71 mL/min (>60)
[2022-08-05] MEDS: Magnesium Sulfate/Water 2 GM in Premix Bag 1 BAG IV SCH (05:22)
[2022-08-05] MEDS: Acetaminophen 500 MG Tab PO SCH ×3 (05:22→21:07)
[2022-08-05] MEDS ORDERED: Furosemide 20 MG/2 ML VIAL IVPUSH ONE ×2 (06:39→12:00)
[2022-08-05] MEDS ORDERED: Bisacodyl 5 MG Tab PO ONE ×2 (06:40→16:00)
[2022-08-05] MEDS: Albuterol/Ipratropium 3.0-0.5 MG/3 ML Neb Soln INH SCH ×4 (07:03→20:11)
[2022-08-05] MEDS: Pantoprazole 40 MG Tab.CR PO SCH (07:33)
[2022-08-05] MEDS: Citalopram 10 MG Tab PO SCH ×2 (09:38→20:02)
[2022-08-05] MEDS: Loratadine 10 MG Tab PO SCH (09:38)
[2022-08-05] MEDS: Celecoxib 200 MG Cap PO SCH ×2 (09:39→20:02)
[2022-08-05] MEDS: Fluticasone NASAL Spray 16 GM Bottle NASBOTH SCH ×2 (09:39→20:03)
[2022-08-05] MEDS: busPIRone 5 MG Tab PO SCH (09:39)
[2022-08-05] MEDS: Ketotifen 0.025% Ophth Soln 5 ML Bottle EYEBOTH SCH ×2 (09:40→20:05)
[2022-08-05] MEDS: Magnesium Hydroxide 400 MG/5 ML Susp 30 ML Cup PO SCH ×2 (09:41→20:05)
[2022-08-05] MEDS: Hypromellose 0.3% Ophth Soln 15 ML Bottle EYEBOTH SCH ×3 (09:42→20:01)
[2022-08-05] MEDS: Dextrose 5%-Lactated Ringers 1,000 ML IV SCH (12:58)
[2022-08-05] MEDS: Albumin Human 25 GM in Premix Bag 1 BAG IV SCH (12:59)
[2022-08-05] MEDS: Bisacodyl 5 MG Tab PO SCH (18:01)
[2022-08-05] MEDS: Ziprasidone HCl 20 MG Cap PO SCH (20:05)
[2022-08-05] MEDS: traZODone 50 MG Tab PO SCH (20:06)
[2022-08-06 05:35] LABS: ESTIMATED GFR 62 mL/min (>60)
[2022-08-06] MEDS: Bisacodyl 5 MG Tab PO SCH (06:20)
[2022-08-06] MEDS: Acetaminophen 500 MG Tab PO SCH (06:22)
[2022-08-06] MEDS ORDERED: Furosemide 20 MG/2 ML VIAL IVPUSH ONE (06:50)
[2022-08-06] MEDS: Albuterol/Ipratropium 3.0-0.5 MG/3 ML Neb Soln INH SCH (07:24)
[2022-08-06] MEDS: Pantoprazole 40 MG Tab.CR PO SCH (07:44)
[2022-08-06] MEDS: Magnesium Hydroxide 400 MG/5 ML Susp 30 ML Cup PO SCH (09:47)
[2022-08-06] MEDS: Fluticasone NASAL Spray 16 GM Bottle NASBOTH SCH (09:48)
[2022-08-06] MEDS: busPIRone 5 MG Tab PO SCH (09:49)
[2022-08-06] MEDS: Citalopram 10 MG Tab PO SCH (09:49)
[2022-08-06] MEDS: Celecoxib 200 MG Cap PO SCH (09:49)
[2022-08-06] MEDS: Ketotifen 0.025% Ophth Soln 5 ML Bottle EYEBOTH SCH (09:49)
[2022-08-06] MEDS: Hypromellose 0.3% Ophth Soln 15 ML Bottle EYEBOTH SCH (09:50)
[2022-08-06] MEDS: Loratadine 10 MG Tab PO SCH (09:50)
== END 2022-08-06 10:51 | disposition home health service (06) | DRG 327 ==
LOC: JP.SDSSCHI 10:38 → JP.2SS 15:50
PROVIDERS: ADMIT Surgery; ATTEND Surgery
PROC: 0D150ZA Bypass Esophagus to Jejunum, Open Approach (ICD-10-PCS; principal; 2022-08-01)
PROC: 0FB20ZZ Excision of Left Lobe Liver, Open Approach (ICD-10-PCS; 2022-08-01)
PROC: 0D160ZA Bypass Stomach to Jejunum, Open Approach (ICD-10-PCS; 2022-08-01)
PROC: 0DQ80ZZ Repair Small Intestine, Open Approach (ICD-10-PCS; 2022-08-01)
PROC: 3E0M05Z Introduction of Adhesion Barrier into Peritoneal Cavity, Open Approach (ICD-10-PCS; 2022-08-01)
DX: K95.89 Other complications of other bariatric procedure (principal); K56.600 Partial intestinal obstruction, unspecified as to cause; Y83.9 Surgical procedure, unspecified as the cause of abnormal reaction of the patient, or of later complication, without mention of misadventure at the time of the procedure; Z98.84 Bariatric surgery status; K25.9 Gastric ulcer, unspecified as acute or chronic, without hemorrhage or perforation; K29.70 Gastritis, unspecified, without bleeding; F41.9 Anxiety disorder, unspecified; J45.909 Unspecified asthma, uncomplicated; E53.9 Vitamin B deficiency, unspecified; M79.7 Fibromyalgia; K21.9 Gastro-esophageal reflux disease without esophagitis; E66.01 Morbid (severe) obesity due to excess calories; G47.30 Sleep apnea, unspecified; Z79.899 Other long term (current) drug therapy; Z79.890 Hormone replacement therapy; Z68.25 Body mass index [BMI] 25.0-25.9, adult; Z90.89 Acquired absence of other organs; E55.9 Vitamin D deficiency, unspecified; E50.9 Vitamin A deficiency, unspecified
CPT/HCPCS: 36415; 36430; 74240; 74240-26; 80053; 83735; 83880; 84100; 84443; 85025; 85027; 86850; 86900; 86901; 86920; 86922; 88307; 93005; 94640; A9270-GY; C9113; J0171; J0330; J0694; J1100; J1170; J1940; J2020; J2185; J2405; J2704; J2710; J2795; J3010; J3411; J3420; J3475; J3490; J7120; J7121; J7620; P9016; P9047; Q9967; U0002